=== PATIENT | female | born 1990 | race Caucasian/White ===

== ENCOUNTER → 2021-11-14 12:26 | Outpatient (ROUT) | payer OTHER, SELFPAY | PROVIDERS: Visit Provider Nurse Practitioner Obstetrics & Gynecology | DX: Z34.90 Encounter for supervision of normal pregnancy, unspecified, unspecified trimester (principal); Z36.85 Encounter for antenatal screening for Streptococcus B; Z3A.36 36 weeks gestation of pregnancy | CPT/HCPCS: 87081; 87147 ==

== ENCOUNTER 2021-12-11 13:45 | Outpatient (CLI) | payer OTHER, SELFPAY ==
--- NOTE | 2021-12-11 15:00 | PM.OBTRLD ---
Visit Information Visit Information Date of evaluation: 12/11/21 Primary OB Provider: Amina Perales On-call OB Provider: Amina Perales Reason for Evaluation: Yes rule out labor Comments/Additional reasons for admission: 31YO @ [id number] by 12wks US who presents for evaluation of labor. Has been feeling strong contractions every 10 minutes and was encouraged to come in for evaluation because she lives in [place]. Scant vaginal bleeding. No LOF. Uncomplicated PN care w/ CNM. Desires low intervention . Has been counseled on GBS positive status , recommendation for treatment with risk and benefits and is declining GBS prophylaxis unless SROM occurs early in labor. Vital Signs Vital Signs: BP 128/80mmHg, HR 75bpm, T 35.9C Temporal PFSH Social History (Updated 12/11/21 @ 15:10 by Amina Perales CNM) marital status: number of children: 1 household members: spouse and children lives independently: Yes caregiver/support person: No occupational status: employed Smoking Status: Never smoker Review of Systems Review of Systems ROS: Yes All systems reviewed with the patient and are negative except as otherwise documented Exam Vital Signs (past 8 hours): see above Presentation: vertex Estimated Weight (lbs): 65 Objective Imaging SAUL:: My impression: SAUL- 10.32cm, MVP-3.46cm, cephalic presentation Evaluation Evaluation Baseline heart rate: 130 Variability: Moderate (11-25) monitor accelerations: Present Monitor Decelerations: Absent Contraction Frequency (minutes): 15 Uterine Contraction Intensity: Moderate Category of Tracing: Reactive Cervical dilation (cm): 4 Cervical effacement (%): 80 station: -2 Diagnosis, Plan/Disposition Final Diagnosis (1) False labor after 37 weeks of gestation without delivery: Status: Acute Problem details: vs. early labor Plan/Disposition Plan: Recommend 2 hours walk and return of contractions presist. Pt to let me know if this progress sooner or fade away. Routine post dates testing scheduled for tomorrow has been canceled since it was completed and reassuring at this triage visit. OB Disposition: home
== END 2021-12-11 14:50 | disposition home or self-care (01) ==
LOC: LABOR 15:08 → OB 12-14 12:19
PROVIDERS: Referring Provider Nurse Practitioner Obstetrics & Gynecology; Visit Provider Nurse Practitioner Obstetrics & Gynecology
DX: O47.1 False labor at or after 37 completed weeks of gestation (principal); O48.0 Post-term pregnancy; Z3A.40 40 weeks gestation of pregnancy
CPT/HCPCS: 59025; 76815; G0378; G0379

== ENCOUNTER 2021-12-16 16:15 | Inpatient (IN) | payer OTHER, SELFPAY ==
--- NOTE | 2021-12-16 16:22 | P.HPOB_ITS ---
OB HPI Date/Time Date of admission: 12/16/21 Date Patient Seen: 12/16/21 Time Patient Seen: 16:23 History of Present Condition Chief complaint: Observation for labor : 3 Para: 1 Estimated Date of Delivery: 12/05/21 Estimated Gestational Age (weeks): 41.4 Narrative: Guerda Villela is a 31 year old female @ [id number] by early US who presents for evaluation of labor. Seen in clinic earlier today @ 5cm with membranes swept. Now marylou every 3 minutes, breathing though them and closing her eyes to concentrate. Has noticed some vaginal bleeding over the last 1-2 hours. No LOF. Uncomplicated PN care w/ CNM. Desires low intervention . Declines antibiotics for GBS prophylaxis until her water breaks. is present and supportive. History of Present care: good care, initiated at week # (12), number of visits (11) and pounds weight gain (22) Dating criteria: based on 1st trimester US only Ultrasounds: normal mid trimester US Obstetrical complications: none Medical complications: none Preadmission Labs Blood type: A (-) negative -: Antibody screen: positive, GBS status: positive, HBsAG: negative, HIV: negative and RPR/VDLR: negative -: Chlamydia screen: not detected and Gonorrhea screen: not detected -: Rubella: immune and Varicella: immune HCT: 38.5 HCAB: negative 1 hr GTT: 119 Prior (ies) History: 05/15/2019:NSVB, male-Reynold, 41.0, 24 hr labor, Epidural, 1?, post dates IOL 02/08/2021: SAB, 6wks Evaluation Evaluation Baseline heart rate: 128 Variability: Moderate (11-25) monitor accelerations: Present Monitor Decelerations: Absent Contraction Frequency (minutes): 2 Comments: CE deferred- was 5cm in clinic [facility] Social History marital status: number of children: 1 household members: spouse and children lives independently: Yes caregiver/support person: No occupational status: employed Smoking Status: Never smoker Meds Home Medications and Allergies Home Medications Medication Instructions Recorded Confirmed Type No Known Home Medications 12/16/21 12/16/21 History Allergies Allergy/AdvReac Type Severity Reaction Status Date / Time No Known Drug Allergies Allergy Verified 12/16/21 17:07 Review of Systems Review of Systems ROS: Yes All systems reviewed with the patient and are negative except as othe rwise documented OB Exam Resp Effort & Inspection: normal respiratory effort and able to speak in complete sentences Auscultation: clear to auscultation bilaterally Cardio Rate: regular rate Rhythm: regular rhythm Heart Sounds: S1 normal and S2 normal Presentation: vertex Objective Labs Result Diagrams: 12/16/21 16:40 Assessment and Plan Assessment and Plan Assessment and Plan narrative: A: Term primipara @ 41.4wks Active labor GBS prophylaxis indicated0 DECLINED by patient Rh negative Cat I FHR P: Admit, routine orders w/ SL IV. GBS prophylaxis ordered and will start w/ SROM (patient was previously counseled in clinic and is aware of risk of EOS in her ). May switch to IA. Continuous labor support. Reassess in 4 hours or sooner, PRN.
[2021-12-16 17:06] VITALS: BP 124/88
[2021-12-16 17:08] LABS: Add Manual Diff / Slide Review NO; Basophils Absolute Auto 0 /uL (0-100); Basophils Percent Auto 0.2 % (0-2); Eosinophils Absolute Auto 0 /uL (0-450); Eosinophils Percent Auto 0.1 % (2-4); Hematocrit 42.9 % (36-46); Hemoglobin 15.2 g/dL (12.0-16.0); Lymphocytes Absolute Auto 1600 /uL (1100-4500); Lymphocytes Percent Auto 11.8 % (25-40); Mean Corpuscular HGB Conc 35.5 % (30-36); Mean Corpuscular Hemoglobin 30.8 PG (26-34); Monocytes Absolute Auto 800 /uL (0-900); Neutrophils Absolute Auto 11100 /uL (1500-7000); Neutrophils Percent Auto 81.9 % (50-75); Platelet Count 158 X10^3/uL (150-400); Red Blood Cell Count 4.93 X10^6/uL (4.0-5.2); Red Cell Distribution Width 13.1 % (11.6-14.8); White Blood Cell Count 13.5 X10^3/uL (4.5-11.0)
[2021-12-16 17:18] LABS: COVID19 -Nasal RAPID Negative (Negative)
[2021-12-16] MEDS: LACTATED RINGERS 1,000 ML 100 ML IV (17:35)
[2021-12-16] MEDS: FENT 2MCG/ML BUPIV 0.125% EPI 200 MCG/100 ML PLAST..BAG 8 MCG EPIDURAL (18:01)
--- NOTE | 2021-12-16 19:04 | PM.OBPRVD ---
Labor & Delivery Delivery date: 12/16/21 Intrapartal Events: None Cervical ripening method: none Induction method: none Delivery monitor: external FHT and external uterine Route of delivery: Episiotomy description: None L&D Laceration Description: None Quantitative Blood Loss: 275 Anesthesia Type: Epidural Narrative: Patient labored well in the tub, then requested epicural which was placed quickly with complete pain relief. Guerda was C/C/0 with a BBOW. After laboring down for bout 30 minutes, SROM for large gush of clear fluid. Short second stage led to NSVB of a vigorous baby boy in RENEE position with a single loose nuchal cord and easy delivery of the shoulders. was placed on maternal abdomen for drying and skin to skin. 30 units of pitocin in 500mL LR was started at 250ml/hr for AMTSL. After cessation of pulsation, the cord was double clamped by CNM and cut by FOB. Cord blood sample was collected. Gentle cord traction led to spontaneous, Schultze delivery of an apparently intact placenta, membranes and 3VC. Fundus immediately firm and bleeding minimal. Straight catheter performed for 50mL urine out. Both mother and baby stable and skin to skin as I left the room. Baby 1: gender: Male Presentation: vertex Position: Left Occiput Anterior Placenta delivery description: Spontaneous Cord Vessel Description: 3 Vessels and Nuchal Cord (x1) score (1 min): 8 score (5 min): 9 weight: 3.415 kg Plan for aftercare: Routine care
--- NOTE | 2021-12-16 20:10 | P.PCN_ITS ---
Regional Block Pre-procedure Procedure: Continuous Lumbar Epidural for L&D Attending OB provider: Amina Perales PMH/ROS narrative: term labor, no complications ASA Class: II Labs: Hct 42.9 % (36-46) 12/16/21 16:40 Plt Count 158 X10^3/uL (150-400) 12/16/21 16:40 Medications: Current Medications Generic Name Dose Route Start Last Admin Trade Name Freq PRN Reason Stop Dose Admin Acetaminophen 650 mg 12/16/21 19:32 Acetaminophen 325 Mg Tablet PO Q6HR PRN Pain, Mild (1-3) Benzocaine 1 spray 12/16/21 19:32 Dermoplast [place] 20% 60 Ml TOP Q1HR PRN perineal pain Carboprost Tromethamine 250 mcg 12/16/21 19:32 Carboprost 250 Mcg/Ml Ampul IM Q90MIN PRN Bleeding Emollient Ointment 1 applic 12/16/21 19:32 Lanolin Oint 7 Gm TOP PRN PRN Tenderness Oxytocin/Lactated Ringer's 30 unit in 500 mls @ 200 mls/hr 12/16/21 19:32 Oxytocin Premix IV CONT PRN Bleeding Protocol Tranexamic Acid 1,000 mg/ 100 mls @ 200 mls/hr 12/16/21 19:32 Sodium Chloride IV NOW PRN Bleeding Ibuprofen 600 mg 12/16/21 19:32 Ibuprofen 600 Mg Tablet PO Q6HR PRN Pain, Mild (1-3) Methylergonovine Maleate 0.2 mg 12/16/21 19:32 Methylergonovine 0.2 Mg Tablet PO Q6HR PRN Heavy bleeding Methylergonovine Maleate 0.2 mg 12/16/21 19:32 Methylergonovine 0.2 Mg/Ml Vial IM NOW PRN Bleeding Misoprostol 800 mcg 12/16/21 19:32 Misoprostol 200 Mcg Tablet MD NOW PRN Bleeding Misoprostol 1,000 mcg 12/16/21 19:32 Misoprostol 200 Mcg Tablet MD NOW PRN Bleeding Misoprostol 400 mcg 12/16/21 19:32 Misoprostol 200 Mcg Tablet SL NOW PRN Bleeding Naloxone HCl 0.2 mg 12/16/21 19:32 Naloxone 0.4 Mg/Ml Vial IV Q2MIN PRN Opiate Reversal Oxycodone HCl 5 mg 12/16/21 19:32 Oxycodone Ir 5 Mg Tablet PO Q4HR PRN Pain, Moderate (4-6) Oxytocin 10 unit 12/16/21 19:32 Oxytocin 10 Unit/Ml Vial IM NOW PRN Bleeding Rho Immune Globulin 1,500 unit 12/16/21 19:32 Rho(D) Immune Globulin 1,500 Unit Syringe IM NOW PRN Mom Rh neg, Rh pos Allergies: Allergies Allergy/AdvReac Type Severity Reaction Status Date / Time No Known Drug Allergies Allergy Verified 12/16/21 17:07 Procedure Insertion date: 12/16/21 Insertion time: 17:40 Prep/Local: betadine x3 and 1% lidocaine Interspace: L2-3 Patient position: sitting Needle: 18 gauge [employer] (CSE: 27g Pencan through [place], clear CSF, 1mL 0.25% bupiv MPF) Loss of resistance with: saline RANDY at (cm): 5 Catheter placed at SKIN (cm): 10 Catheter in SPACE (cm): 5 Insertion: No CSF, No Blood, No Paresthesia with insertion, No Paresthesia with injection and No Test dose reaction Initial Medications TEST DOSE: 1.5% lidocaine with epinephrine 1:200k (mL): 3 BOLUS DOSE (mL): 3 BOLUS DOSE med: other (2% lidocaine) Infusion INFUSION: 0.125% bupivacaine and with fentanyl 2 mcg/mL Initial rate (mL/hr): 8 Subsequent interventions: 5mL bolus of infusate at initiation of infusion, @17:54 Post-procedure Anesthesia time START: 17:33 Anesthesia time END: 18:50 Post-procedure Anesthesia Assessment: Yes CV function: HR/BP stable, Yes Resp function: RR/sat/airway adequate, Yes Mental status appropriate and No Anesthesia complications
--- NOTE | 2021-12-17 09:28 | PM.OBDS.1 ---
Discharge Providers Provider Date of admission: 12/16/21 16:15 Discharge Date: 12/17/21 Consults: 12/17/21 19:01 Consult to Eviscerator Routine Comment: Discharge provider: Amina Perales CNM Summary Hospital Course Date Patient Seen: 12/17/21 Time Patient Seen: 08:00 Diagnoses: O80 Hospital Course: PPD1: S/P NSVB with no lacerations. Sitting up in bed, holding her son. , ambulating and breast feeding independently. Tolerating a general diet. Minimal pain is well controlled w/ PO medication. Vaginal bleeding is light, no clots. Eager for discharge to home [place]. remains present and supportive. Peripartum Data Infant Delivery Method: Natural Vaginal Laceration Description: None Episiotomy description: None Procedures: O80 complications: none [place] 1: Gender: Male Disposition of : home Discharge Diagnosis (1) Encounter for full-term uncomplicated delivery: Start Date: 12/16/21 Start Time: 18:40 Status: Acute Problem Details: routine PP course Status at Discharge Cognitive/behavioral status at discharge: oriented Functional status at discharge: independent ambulation Overall status at discharge: patient is back to baseline Time Spent with Patient Time attestation: Total time spent providing and/or coordinating discharge services: Time spent: Less than 30 minutes Objective Labs Result Diagrams: 12/16/21 16:40 Labs: Laboratory Results - last 24 hr 12/16/21 12/16/21 12/16/21 16:40 16:40 16:40 WBC 13.5 H RBC 4.93 Hgb 15.2 Hct 42.9 MCV 87.0 MCH 30.8 MCHC 35.5 RDW 13.1 Plt Count 158 Neut % (Auto) 81.9 H Lymph % (Auto) 11.8 L [place] % (Auto) 6.0 Eos % (Auto) 0.1 L Baso % (Auto) 0.2 Neut # (Auto) 26062 H Lymph # (Auto) 1600 [place] # (Auto) 800 Eos # (Auto) 0 Baso # (Auto) 0 SARS-CoV-2 (PCR) Negative Blood Type A Negative Antibody Screen Negative Exam Vital Signs (past 8 hours): BP 119/81, HR 76, RR 16, T 98.2F Temporal Resp Effort & Inspection: normal respiratory effort and able to speak in complete sentences Other: Fundus firm @ U-2, lochia light. Perineum intatc. Discharge Plan Discharge Plan Patient Disposition: Home Discharge orders & Medications Prescriptions: New ibuprofen 600 mg Tablet 600 mg PO Q6HR PRN (Reason: Pain, Mild (1-3)) 14 Days Qty: 40 0RF No Action No Known Home Medications Follow up/Referrals: Amina Perales CNM [[employer]] - (Follow-up 12/31/21 @ 0930 by telehealth Follow-up 01/28/22 @ 1045 in office) Diet/Activity/Treatments Diet: Diet as Tolerated and Regular Activity: pelvic rest x 6 weeks Skin/Wound/Dressing Care Report to your healthcare provider any signs of infection, such as:: chills, fever, increased pain, unusual drainage and unusual redness Visit Report/Discharge Packet Instructions: DI for Depression
[2021-12-17] MEDS: IBUPROFEN 600 MG TABLET PO (12:12)
[2021-12-17] MEDS: LANOLIN OINT 7 GM 1 APPLIC TOP (12:12)
[2021-12-17] MEDS: DERMOPLAST SPRAY 20% 60 ML 1 SPRAY TOP (12:13)
== END 2021-12-17 13:00 | disposition home or self-care (01) | DRG 807 ==
PROVIDERS: Admitting Provider Nurse Practitioner Obstetrics & Gynecology; Referring Provider Nurse Practitioner Obstetrics & Gynecology; Visit Provider Nurse Practitioner Obstetrics & Gynecology
DX: O48.0 Post-term pregnancy (principal); Z37.0 Single live birth; Z3A.41 41 weeks gestation of pregnancy; O99.824 Streptococcus B carrier state complicating childbirth; O69.81X0 Labor and delivery complicated by cord around neck, without compression, not applicable or unspecified; Z20.822 Contact with and (suspected) exposure to COVID-19
CPT/HCPCS: 01967; 36415; 59050; 85025; 86850; 86900; 86901; 87635; C9803; G0379

== ENCOUNTER → 2024-09-20 19:44 | Outpatient (ROUT) | payer OTHER, SELFPAY ==
[2024-09-20 19:57] LABS: Hematocrit 40.9 % (36-46); Hemoglobin 13.6 g/dL (12.0-16.0); Mean Corpuscular HGB Conc 33.3 % (30-36); Mean Corpuscular Hemoglobin 31.3 PG (26-34); Mean Corpuscular Volume 94.1 fL (80-100); Platelet Count 162 X10^3/uL (150-400); Red Blood Cell Count 4.35 X10^6/uL (4.0-5.2); Red Cell Distribution Width 14.6 % (11.6-14.8)
== END ==
LOC: LAB 19:44
PROVIDERS: Visit Provider Nurse Practitioner Obstetrics & Gynecology
DX: Z34.90 Encounter for supervision of normal pregnancy, unspecified, unspecified trimester (principal); Z67.91 Unspecified blood type, Rh negative; Z3A.26 26 weeks gestation of pregnancy
CPT/HCPCS: 85027; 86850